=== PATIENT | female | born 1945 | race Caucasian/White ===

== ENCOUNTER 2016-12-12 07:49 | Outpatient (RCR) ==
[2016-12-12 08:23] VITALS: TEMP 98.1; BMI 36.8
[2017-01-10 10:49] VITALS: BP 128/62
== END 2017-01-11 ==
LOC: CAR.REHAB 07:49
PROVIDERS: ATTEND Family Medicine
DX: I46.9 Cardiac arrest, cause unspecified (principal)
CPT/HCPCS: 93797

== ENCOUNTER 2017-01-12 10:19 | Outpatient (RCR) ==
[2017-02-10 08:59] VITALS: BP 128/58
== END 2017-02-10 ==
LOC: CAR.REHAB 10:19
PROVIDERS: ATTEND Internal Medicine
DX: I46.9 Cardiac arrest, cause unspecified (principal)
CPT/HCPCS: 93797

== ENCOUNTER 2017-02-13 07:36 | Outpatient (RCR) ==
[2017-03-10 11:45] VITALS: BP 128/72
== END 2017-03-13 ==
LOC: CAR.REHAB 07:36
PROVIDERS: ATTEND Internal Medicine
DX: I46.9 Cardiac arrest, cause unspecified (principal)
CPT/HCPCS: 93797

== ENCOUNTER 2017-03-14 06:59 | Outpatient (RCR) ==
[2017-03-24 08:53] VITALS: BP 118/62
== END 2017-03-24 12:30 | disposition home or self-care (01) ==
LOC: CAR.REHAB 06:59
PROVIDERS: ATTEND Internal Medicine
DX: I46.9 Cardiac arrest, cause unspecified (principal)
CPT/HCPCS: 93797

== ENCOUNTER 2018-11-12 07:20 | Day surgery (SDC) | payer OTHER ==
[2018-11-12 07:47] VITALS: TEMP 97.6
[2018-11-12] MEDS ORDERED: LIDOCAINE 1% 20 ML MDV ID STA (07:48)
[2018-11-12] MEDS ORDERED: VERSED ONE (08:35)
[2018-11-12] MEDS ORDERED: DIPRIVAN 20 ML VIAL IVP ONE (08:35)
[2018-11-12] MEDS ORDERED: LIDOCAINE HCL 2% LUER-JET ONE (08:35)
[2018-11-12 10:50] VITALS: BP 125/66
--- NOTE | 2018-11-13 11:10 | OP ---
PROCEDURE: EGD (ESOPHAGOGASTRODUODENOSCOPY) WITH PENA DILATATION. ENDOSCOPIST: Jonathan JOLLY M.D. INDICATION: DYSPHAGIA. INSTRUMENT: GIFH-190. MEDICATION: PER ANESTHESIA. PROCEDURE: The patient was positioned for endoscopy. The oropharynx was sprayed with Cetacaine spray and the endoscope was advanced through the bite block into the esophagus and from there advanced to the duodenum. The duodenum was normal. The pylorus was patent. The antrum was normal. Hiatal hernia noted on retroflex exam. The z-line was noted at 30 cm. Distal esophageal ring is noted. The remaining esophagus was normal. The scope withdrawn and a 44 [place] P[place] is passed without difficulty. PLAN: 1. Will change to Nexium given her symptoms and repeat endo as needed. CC: DR. MARKO SORIANO
--- NOTE | 2018-11-13 11:14 | OP ---
PROCEDURE: COLONOSCOPY TO THE CECUM. ENDOSCOPIST: Jonathan JOLLY M.D. INDICATION: HISTORY OF POLYPS. INSTRUMENT: [facility]. MEDICATION: PER ANESTHESIA. PROCEDURE: The patient was positioned for colonoscopy. The digital rectal exam was negative. The colonoscope was inserted through the anus and advanced to the cecum. The cecum was identified using the ileocecal valve and the appendiceal orifice as landmarks. The scope was slowly withdrawn through an adequately prepped colon. [place] Bowel Prep Score equal 9. Diverticulosis noted in the left colon. No evidence for polyp or mass. Retroflex exam otherwise normal. Withdrawal time 8 minutes and 8 seconds. PLAN: 1. Repeat exam in 5 years. CC: DR. MARKO SORIANO
== END 2018-11-12 09:40 | disposition home or self-care (01) ==
LOC: SURG 07:20
PROVIDERS: ATTEND Internal Medicine Gastroenterology
DX: K21.9 Gastro-esophageal reflux disease without esophagitis (principal); Z86.010 Personal history of colon polyps; K57.90 Diverticulosis of intestine, part unspecified, without perforation or abscess without bleeding; R13.10 Dysphagia, unspecified